=== PATIENT | female | born 1945 | race Caucasian/White ===

== ENCOUNTER 2024-04-12 19:45 | Emergency (ER) | payer MEDICARE ==
[~2024-04-12] VITALS: Ht 165.1 cm; Wt 72.6 kg
[2024-04-12 19:54] VITALS: BP 162/75; PULSE 124; RESP 34; TEMP 97.2; O2SAT 100
--- NOTE | 2024-04-12 19:55 | NUR ---
JACKELINEMeir FROM HOME PATIENT PRESENTS TO ED WITH RESPIRATORY DISTRESS THAT STARTED TODAY . PT STATES SHE USES INHALER AT HOME BUT IT DID NOT PROVIDE HER RELIEF TODAY . PT WAS FOUND WITH O2 SAT = 90% RA, GIVEN BREATHING TX ONROUTE AND THEN PLACED ON 10% ON 8L. DENIES N/V/D; SKIN IS PINK/WARM/DRY; AAOX4 WITH EVEN AND STEADY GAIT; LUNGS CLEAR BL; HR EVEN AND REGULAR; PT ALSO REPORTS DRY COUGH AT THIS TIME; PATIENT STATES PAIN OF 0/10 AT THIS TIME; VSS; PATIENT POSITIONED FOR COMFORT; HOB ELEVATED; BEDRAILS UP X2; BED DOWN. ER MD MADE AWARE OF PT STATUS. PT CONNECTED TO MONITOR. PMHX COPD, HTN NKA
--- NOTE | 2024-04-12 19:59 | NUR ---
PT NIK ALS. TAKEN TO BED 7
[2024-04-12] MEDS: ALBUTEROL SULFATE/IPRATROPIU 3 ML SOL IH ONE (20:05)
[2024-04-12 20:08] VITALS: PULSE 114; PULSE 123; RESP 30; RESP 34; O2SAT 98; O2SAT 99
--- NOTE | 2024-04-12 20:34 | NUR ---
X-Ray at bedside.
[2024-04-12] MEDS ORDERED: methylPREDNISolone SS 125 MG/2 ML VIAL ONE (21:08)
[2024-04-12] MEDS: methylPREDNISolone SS 125 MG/2 ML VIAL IVP ONE (21:14)
[2024-04-12 21:16] LABS: BASOPHILS % (AUTO) 0.3 % (0.0-2.0); EOSINOPHILS # (AUTO) 0.3 K/uL (0-0.4); EOSINOPHILS % (AUTO) 4.9 % (0.0-4.0); HEMATOCRIT 38.5 % (36-48); HEMOGLOBIN 12.5 g/dL (12.0-16.0); LYMPHOCYTES # (AUTO) 0.9 K/uL (2.5-16.5); LYMPHOCYTES % (AUTO) 14.3 % (20.5-51.1); MEAN CORPUSCULAR HEMOGLOBIN 29 pg (27-31); MEAN CORPUSCULAR HGB CONC 33 g/dL (33-37); MEAN CORPUSCULAR VOLUME 88.7 fL (80-94); MONOCYTES # (AUTO) 0.5 K/uL (0.8-1.0); MONOCYTES % (AUTO) 7.3 % (1.7-9.3); NEUTROPHILS # (AUTO) 4.7 K/uL (1.8-7.7); NEUTROPHILS % (AUTO) 73.2 % (42.2-75.2); PLATELET COUNT (AUTO) 166 K/uL (140-450); RED BLOOD CELL COUNT(AUTO) 4.34 MIL/uL (4.20-5.40); RED CELL DISTRIBUTION WIDTH 17.6 % (11.6-13.7); WHITE BLOOD COUNT (AUTO) 6.4 K/uL (4.8-10.8)
[2024-04-12 21:27] LABS: INR 1.02 (0.8-1.2); PARTIAL THROMBOPLASTIN TIME 26.3 secs (22-35.6); PROTHROMBIN TIME 10.7 secs (10.8-13.4)
[2024-04-12 21:34] LABS: ANION GAP 14.1 (8-16); CALCIUM 9.4 mg/dL (8.5-10.1); CARBON DIOXIDE 26.2 mmol/L (21-32); CHLORIDE 101 mmol/L (98-107); CREATININE 0.8 mg/dL (0.6-1.3); GLUCOSE 118 mg/dL (74-106); POTASSIUM 3.3 mmol/L (3.5-5.1); SODIUM SERUM 138 mmol/L (136-145); UREA NITROGEN, BLOOD 24 mg/dL (7-18)
[2024-04-12 21:52] LABS: FLU A ANTIGEN negative (NEGATIVE); FLU B ANTIGEN negative (NEGATIVE)
--- NOTE | 2024-04-12 22:02 | NUR ---
Dr. Mckinley examining patient.
[2024-04-12] MEDS ORDERED: PRED20TA5 PO (22:23)
[2024-04-12 22:29] VITALS: BP 144/75; PULSE 103; RESP 22; TEMP 97.7; O2SAT 94
--- NOTE | 2024-04-12 22:29 | NUR ---
Patient discharged with v/s stable. Written and verbal after care instructions given and explained. Patient alert, oriented and verbalized understanding of instructions. All questions addressed prior to discharge. ID band removed. Patient advised to follow up with PMD. Rx of given. Patient educated on indication of medication including possible reaction and side effects. Opportunity to ask questions provided and answered.
== END 2024-04-12 22:29 | disposition home or self-care (01) ==
LOC: MED 19:45
DX: J44.1 Chronic obstructive pulmonary disease with (acute) exacerbation (principal); I10 Essential (primary) hypertension; Z20.822 Contact with and (suspected) exposure to COVID-19; Z79.899 Other long term (current) drug therapy
CPT/HCPCS: 36415; 71045; 80048; 83880; 84484; 85025; 85610; 85730; 87426; 87804; 93005; 94640; 96374; 99285; J2919; Q0092